=== PATIENT | male | born 1965 | race Caucasian/White ===

== ENCOUNTER 2016-10-19 10:50 | Emergency (ER) | payer OTHER ==
[2016-10-19 10:54] VITALS: BP 154/85; PULSE 68; RESP 20; TEMP 98.1; O2SAT 98
[2016-10-19] MEDS ORDERED: Lidocaine 2% w Epi 1:100,000 Inj IJ ONE (11:08)
[2016-10-19] MEDS ORDERED: Lidocaine 1% w Epi 1:100,000 Inj INJ ONE (11:08)
[2016-10-19] MEDS ORDERED: Naproxen 550 mg Tab PO STA (11:08)
[2016-10-19] MEDS ORDERED: Naproxen 550 mg Tab PO ONE (11:14)
--- NOTE | 2016-10-19 11:26 | C.PDOC ---
History Of Present Illness 50 y/o male presents to ED for evaluation of swelling, pain, and redness to an area in his left shoulder for the last 4 days. Pt has history of multiple I&D in the same area, last I&D was in 2014. Notes that his sugar level is at baseline. No fever, or any other complaints at this time. Pt is not up to date with tetanus vaccination. Time Seen by Provider: 10/19/16 11:04 Chief Complaint (Nursing): Abnormal Skin Integrity History Per: Patient History/Exam Limitations: no limitations Onset/Duration Of Symptoms: Days (4) Current Symptoms Are (Timing): Still Present Location Of Injury: Left: Shoulder, Posterior: Shoulder Quality Of Symptoms: Painful, Swollen Recent travel outside of the [place]: No Additional History Per: Patient Past Medical History Reviewed: Historical Data, Nursing Documentation, Vital Signs Vital Signs: Last Vital Signs Temp 98.1 F 10/19/16 10:54 Pulse 68 10/19/16 10:54 Resp 20 10/19/16 10:54 BP 154/85 H 10/19/16 10:54 Pulse Ox 98 10/19/16 12:59 - Medical History PMH: HTN Family History: States: Unknown Family Hx - Social History Hx Tobacco Use: No Hx Alcohol Use: No Hx Substance Use: No - Immunization History Hx Tetanus Toxoid Vaccination: No Hx Influenza Vaccination: No Hx Pneumococcal Vaccination: No Review Of Systems Except As Marked, All Systems Reviewed And Found Negative. Constitutional: Negative for: Fever, Chills Musculoskeletal: Positive for: Shoulder Pain (left) Skin: Positive for: Other (swelling, redness, and pain to left shoulder). Negative for: Rash Physical Exam - Physical Exam Appears: Non-toxic, No Acute Distress Skin: Warm, Dry, Other (2x2cm area of swelling, tenderness, erythema, and fluctuance to posterior aspect of left shoulder) Head: Atraumatic, Normacephalic Eye(s): bilateral: Normal Inspection, EOMI Nose: Normal Oral Mucosa: Moist Chest: Symmetrical Respiratory: No Accessory Muscle Use Back: No CVA Tenderness, No Vertebral Tenderness Extremity: Normal ROM, Capillary Refill (<2 sec.), No Deformity, Swelling ( posterior left shoulder) Extremity: Bilateral: Atraumatic, Normal ROM Neurological/Psych: Oriented x3, Normal Speech, Normal Motor, Normal Sensation ED Course And Treatment O2 Sat by Pulse Oximetry: 98 (on RA) Pulse Ox Interpretation: Normal Progress Note: The most fluctuant portion of the abscess was incised with a #11 scalpel. The abscess was packed. On exam the abscess is notably less fluctuant. The patient tolerated the procedure well, and there were no complications. Wound care was discussed, and instructed to return in 2 days for wound check. - Incision & Drainage Of Abscess Anesthesia: Lidocaine 1%, With Epi Prep Used: Sterile Water, Betadine Procedure: Incised W/Scalpel Blade#: (11), Drained Pus, Irrigated Cavity W/ Saline, Probed To Break Up Loculations, Packed W/Gauze, Cultures Obtained And Sent To Lab Disposition - Disposition Disposition: HOME/ ROUTINE Disposition Time: 11:26 Condition: STABLE Additional Instructions: Keep area clean and dry . Return in 2 days for wound check. Prescriptions: Cephalexin [cephalexin] 500 mg PO BID #14 cap Naproxen [Naprosyn] 1 tab PO BID PRN #20 tab PRN Reason: Pain Sulfamethoxazole/Trimethoprim [Bactrim DS 800 mg-160 mg] 1 tab PO BID #14 tab Instructions: Abscess Incision and Drainage (ED) Forms: [employer] Apps (Lao) - Clinical Impression Clinical Impression: Abscess - PA / TEST DIRECTOR / Resident Statement MD/DO has reviewed & agrees with the documentation as recorded. - Scribe Statement The provider has reviewed the documentation as recorded by the Prakash Link All medical record entries made by the Kimberlyibkal were at my direction and personally dictated by me. I have reviewed the chart and agree that the record accurately reflects my personal performance of the history, physical exam, medical decision making, and the department course for this patient. I have also personally directed, reviewed, and agree with the discharge instructions and disposition.
== END 2016-10-19 11:48 | disposition home or self-care (01) ==
LOC: C.ER 10:50
DX: L02.414 Cutaneous abscess of left upper limb (principal); Z23 Encounter for immunization

== ENCOUNTER 2016-10-21 08:25 | Emergency (ER) | payer OTHER ==
[2016-10-21 08:30] VITALS: BP 146/77; PULSE 74; RESP 18; TEMP 98; O2SAT 100
[2016-10-21] MEDS ORDERED: Bacitracin 500 Units/gm Oint Foilpak UD TOP ONE (08:40)
--- NOTE | 2016-10-21 08:42 | C.PDOC ---
History Of Present Illness 50 y/o male presents to ED for wound check on left posterior shoulder. Patient was seen on 10/19/16 at ED for an abscess to the left posterior shoulder and had an I&D done, abscess was packed and patient was started on Bactrim and Keflex. Patient reports area is better, less swollen and less painful. He denies fever, chills, nausea, vomiting, discharge. Time Seen by Provider: 10/21/16 08:33 Chief Complaint (Nursing): Wound Check History Per: Patient History/Exam Limitations: no limitations Onset/Duration Of Symptoms: Days Ago Current Symptoms Are (Timing): Still Present Location Of Injury: Left: Shoulder, Posterior: Shoulder Severity: Mild Past Medical History Reviewed: Historical Data, Nursing Documentation, Vital Signs Vital Signs: Last Vital Signs Temp 98 F 10/21/16 08:30 Pulse 74 10/21/16 08:30 Resp 18 10/21/16 08:30 BP 146/77 10/21/16 08:30 Pulse Ox 100 10/21/16 09:03 - Medical History PMH: HTN Family History: States: No Known Family Hx - Social History Hx Tobacco Use: No Hx Alcohol Use: No Hx Substance Use: No - Immunization History Hx Tetanus Toxoid Vaccination: No Hx Influenza Vaccination: No Hx Pneumococcal Vaccination: No Review Of Systems Except As Marked, All Systems Reviewed And Found Negative. Constitutional: Negative for: Fever, Chills Cardiovascular: Negative for: Chest Pain Respiratory: Negative for: Shortness of Breath Gastrointestinal: Negative for: Nausea, Vomiting Musculoskeletal: Positive for: Shoulder Pain Skin: Negative for: Rash Neurological: Negative for: Weakness, Numbness Physical Exam - Physical Exam Appears: Well, Non-toxic, No Acute Distress Skin: Normal Color, Warm, Dry, No Rash Head: Normacephalic Eye(s): bilateral: Normal Inspection Cardiovascular: Rhythm Regular Respiratory: Normal Breath Sounds, No Rales, No Rhonchi, No Wheezing Extremity: No Tenderness, No Deformity, Other (Posterior left shoulder- well healing abscess with central pustule, packing intact. +mild erythema, +mild induration. Small amount of purulent discharge expressed) Neurological/Psych: Oriented x3 ED Course And Treatment O2 Sat by Pulse Oximetry: 100 (RA) Pulse Ox Interpretation: Normal Progress Note: Packing removed by me, purulent discharge expressed. Patient tolerated well. Area covered with bacitracin and gauze dressing. Patient discharged home, instructed to follow up with PMD/clinic in 1-2 days. He understands he should continue antibioitics until finished, and should return to ED if symptoms worsen. Reevaluation Time: 08:50 Reassessment Condition: Improved Disposition Counseled Patient/Family Regarding: Diagnosis, Need For Followup - Disposition Referrals: [facility] [Outside] Disposition: HOME/ ROUTINE Disposition Time: 08:50 Condition: STABLE Additional Instructions: CONTINUE ANTIBIOTICS KEEP AREA CLEAN AND DRY RETURN TO ER IF SYMPTOMS WORSEN Instructions: Acute Wound Care (ED) Forms: [employer] (Vietnamese) Print Language: TELUGU - POA Present On Arrival: None - Clinical Impression Clinical Impression: Wound check, abscess - PA / OVERHEAD DISTRIBUTION ENGINEER / Resident Statement MD/DO has examined the patient and agrees with the treatment plan. - Scribe Statement The provider has reviewed the documentation as recorded by the Scribkal Leonard All medical record entries made by the Scribkal were at my direction and personally dictated by me. I have reviewed the chart and agree that the record accurately reflects my personal performance of the history, physical exam, medical decision making, and the department course for this patient. I have also personally directed, reviewed, and agree with the discharge instructions and disposition.
[2016-10-21] MEDS ORDERED: Bacitracin 500 Units/gm Oint Foilpak UD ONE (08:51)
== END 2016-10-21 08:56 | disposition home or self-care (01) ==
LOC: C.ER 08:25
DX: Z48.817 Encounter for surgical aftercare following surgery on the skin and subcutaneous tissue (principal)